=== PATIENT | female | born 1980 | race Caucasian/White ===

== ENCOUNTER 2019-07-12 18:48 | Emergency (ER) | payer SELFPAY, OTHER ==
[2019-07-12 19:44] LABS: URINE PH (Dip) POC 6.5 (5.0-8.5)
[2019-07-12 19:44] LABS: URINE BLOOD (Dip) POC 3+ (NEGATIVE); URINE GLUCOSE (Dip) POC Negative (NEGATIVE); URINE KETONES (Dip) POC Trace (NEGATIVE); URINE LEUKOCYTE EST (Dip) POC 3+ (NEGATIVE); URINE NITRITE (Dip) POC Negative (NEGATIVE); URINE TOTAL PROTEIN POC 3+ (NEGATIVE)
[2019-07-12] MEDS: PHENAZOPYRIDINE 100 MG TAB PO (20:02)
[2019-07-12] MEDS: CEPHALEXIN 500 MG CAP PO (20:02)
== END 2019-07-12 20:25 | disposition home or self-care (01) ==
LOC: FTE 18:48
DX: N30.00 Acute cystitis without hematuria (principal); R39.89 Other symptoms and signs involving the genitourinary system
CPT/HCPCS: 81003; 81025; 99283